=== PATIENT | female | born 2005 | race Caucasian/White ===

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

== ENCOUNTER 2024-02-14 10:17 | Emergency (ER) | payer OTHER ==
[2024-02-14 10:26] VITALS: BP 121/82; PULSE 83; RESP 20; TEMP 98
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
--- NOTE | 2024-02-14 11:25 | XR ---
EXAMINATION TYPE: XR knee complete RT DATE OF EXAM: 02/14/2024 COMPARISON: None HISTORY: Knee pain, fall yesterday TECHNIQUE: 3 view right knee FINDINGS: No acute fracture or dislocation is evident. Joint spaces are preserved. Small suprapatella r joint effusion is present. IMPRESSION: 1. Small joint effusion. 2. No acute osseous abnormality. Follow-up can be performed as clinically indicated. [facility], Workstation: [facility], 02/14/2024 11:23 AM
[2024-02-14] MEDS: ACET/COD 300 MG/30 MG STARTER PACK 6 TAB BTL PO STA (11:54)
== END 2024-02-14 12:01 | disposition home or self-care (01) ==
LOC: EC 10:17
CPT/HCPCS: 99283

== ENCOUNTER 2024-07-12 12:36 | Emergency (ER) | payer OTHER ==
[2024-07-12 13:47] LABS: Basophils % (A) 0 %; Eosinophils # (A) 0.1 k/uL (0-0.7); Eosinophils % (A) 1 %; HCT 42.4 % (34.0-46.0); HGB 13.4 gm/dL (11.4-16.0); Lymphocytes # (A) 1.7 k/uL (1.0-4.8); Lymphocytes % (A) 13 %; MCH 28.3 pg (25.0-35.0); MCHC 31.6 g/dL (31.0-37.0); MCV 89.5 fL (80.0-100.0); Monocytes # (A) 0.6 k/uL (0-1.0); Monocytes % (A) 5 %; Neutrophils % (A) 81 %; Platelet Count 305 k/uL (150-450); RBC 4.74 m/uL (3.80-5.40); RDW 13.1 % (11.5-15.5); WBC 13.7 k/uL (4.0-11.0)
[2024-07-12 13:59] LABS: ALT 18 U/L (4-34); AST 24 U/L (14-36); African American GFR (CKD) >90 (>60 ml/min/1.73 sqM); Albumin 4.6 g/dL (3.5-5.0); Alkaline Phosphatase 81 U/L (38-126); Anion Gap 12 mmol/L; Blood Urea Nitrogen 7 mg/dL (7-17); Calcium 9.7 mg/dL (8.4-10.2); Carbon Dioxide 23 mmol/L (22-30); Chloride 98 mmol/L (98-107); Glucose 82 mg/dL (74-99); Non-African American GFR(CKD) >90 (>60 ml/min/1.73 sqM); Potassium 3.9 mmol/L (3.5-5.1); Sodium 133 mmol/L (137-145); Total Bilirubin 0.8 mg/dL (0.2-1.3); Total Protein 7.9 g/dL (6.3-8.2)
[2024-07-12 14:44] LABS: HCG,Quantitative Serum 57755.8 mIU/mL
--- NOTE | 2024-07-12 14:46 | ED ---
General Adult HPI - General Source: patient, family, RN notes reviewed Mode of arrival: ambulatory Limitations: no limitations <Maritza Young - Last Filed: 07/12/24 16:17> - General Source: patient, RN notes reviewed Mode of arrival: ambulatory Limitations: no limitations - History of Present Illness Onset/Timin -: days(s) <Manny Jeronimo - Last Filed: 07/12/24 19:10> - General Chief complaint: Nausea/Vomiting/Diarrhea Stated complaint: , severe nausea Time Seen by Provider: 07/12/24 13:44 - History of Present Illness Initial comments: 18-year-old female presents emergency department for evaluation of nausea and v omiting in . She reports that she is 6 weeks, 6 days . Patient states that she has been vomiting daily for multiple days. She states that she has had difficulty holding down food and fluid. She denies any recent fever, chills, denies abdominal pain. She has not follows with FRAME GATE MORTISER OPERATOR for this yet. (Maritza Young) This is a A0 6-week 6-day 18-year-old female presenting with mother for vomiting x 3 days. Patient states she has been nauseous for the entirety of her with vomiting starting just recently. States she was recently approved for Medicaid and will set up her first OB appointment when she receives her card in the mail. States she is currently taking prenatals. Endorses receiving an ultrasound at [facility] but was too early to confirm intrauterine . States she has been taking carmen lozenges for nausea with minimal relief. Denies fever, chills, dizziness, dyspnea, abdominal pain, hematemesis, diarrhea. (Manny Jeronimo) - Related Data Home Medications Medication Instructions Recorded Confirmed buPROPion XL [Wellbutrin Xl] 150 mg PO DAILY 04/24/20 04/24/20 lamoTRIgine [LaMICtal] See Taper PO DIRECTED 04/24/20 04/24/20 Previous Rx's Medication Instructions Recorded Doxycycline Monohydrate [Monodox] 100 mg PO Q12HR #14 cap 08/19/21 Phenazopyridine HCl [Pyridium] 100 mg PO TID PRN #6 tab 08/19/21 Ibuprofen [Motrin] 600 mg PO Q8HR PRN #20 tab 02/14/24 Doxylamine Succinate/Vit B6 1 each PO HS #10 tab 07/12/24 [Doxylamine-Pyridoxine 10-10 mg] Allergies Allergy/AdvReac Type Severity Reaction Status Date / Time No Known Allergies Allergy Verified 02/14/24 10:25 Review of Systems ROS Other: All systems not noted in ROS Statement are negative. <Maritza Young - Last Filed: 07/12/24 16:17> ROS Other: All systems not noted in ROS Statement are negative. <Manny Jeronimo - Last Filed: 07/12/24 19:10> ROS Statement: Those systems with pertinent positive or pertinent negative responses have been documented in the HPI. Past Medical History Past Medical History: No Reported History History of Any Multi-Drug Resistant Organisms: None Reported Past Surgical History: Appendectomy Past Psychological History: Depression Smoking Status: Vaper Past Alcohol Use History: Rare Past Drug Use History: Marijuana - Past Family History Father Family Medical History: Cancer Additional Family Medical History / Comment(s): Father 5 years ago from lung cancer. Mother Family Medical History: Hypertension Additional Family Medical History / Comment(s): Maternal grandma has HTN <Maritza Young - Last Filed: 07/12/24 16:17> General Exam Limitations: no limitations General appearance: alert, in no apparent distress Head exam: Present: atraumatic, normocephalic, normal inspection Eye exam: Present: normal appearance, PERRL, EOMI. Absent: scleral icterus, conjunctival injection, periorbital swelling ENT exam: Present: normal exam, mucous membranes moist Respiratory exam: Present: normal lung sounds bilaterally. Absent: respiratory distress, wheezes, rales, rhonchi, stridor Cardiovascular Exam: Present: regular rate, normal rhythm, normal heart sounds. Absent: systolic murmur, diastolic murmur, rubs, gallop, clicks GI/Abdominal exam: Present: soft, normal bowel sounds. Absent: distended, tenderness, guarding, rebound, rigid Neurological exam: Present: alert, oriented X3 Psychiatric exam: Present: normal affect, normal mood Skin exam: Present: warm, dry, intact, normal color. Absent: rash <Maritza Young - Last Filed: 07/12/24 16:17> Limitations: no limitations General appearance: alert, in no apparent distress Head exam: Present: atraumatic, normocephalic, normal inspection Eye exam: Present: normal appearance, PERRL, EOMI. Absent: scleral icterus, conjunctival injection, periorbital swelling ENT exam: Present: normal exam, mucous membranes moist Neck exam: Present: normal inspection. Absent: tenderness, meningismus, lymphadenopathy Respiratory exam: Present: normal lung sounds bilaterally. Absent: respiratory distress, wheezes, rales, rhonchi, stridor Cardiovascular Exam: Present: regular rate, normal rhythm, normal heart sounds. Absent: systolic murmur, diastolic murmur, rubs, gallop, clicks GI/Abdominal exam: Present: soft, normal bowel sounds. Absent: distended, tenderness, guarding, rebound, rigid Extremities exam: Present: normal inspection, full ROM, normal capillary refill. Absent: tenderness, pedal edema, joint swelling, calf tenderness Back exam: Present: normal inspection Neurological exam: Present: alert, oriented X3, CN II-XII intact Psychiatric exam: Present: normal affect, normal mood Skin exam: Present: warm, dry, intact, normal color. Absent: rash <Manny Jeronimo - Last Filed: 07/12/24 19:10> Course Vital Signs 07/12/24 07/12/24 13:19 17:29 Temperature 98.5 F 98.9 F Pulse Rate 58 L 71 Respiratory 20 18 Rate Blood Pressure 118/77 122/70 O2 Sat by Pulse 99 100 Oximetry Medical Decision Making - Lab Data Result diagrams: 07/12/24 13:34 07/12/24 13:34 <Maritza Young - Last Filed: 07/12/24 16:17> - Lab Data Result diagrams: 07/12/24 13:34 07/12/24 13:34 <Manny Jeronimo - Last Filed: 07/12/24 19:10> - Medical Decision Making Was pt. sent in by a medical professional or institution (COLEEN Nuñez, WHITE METAL CASTER, urgent care, hospital, or longterm...) When possible be specific @ -[No] Did you speak to anyone other than the patient for history (EMS, parent, family, police, friend...)? What history was obtained from this source @ -[No] Did you review nursing and triage notes (agree or disagree)? Why? @ -[I reviewed and agree with nursing and triage notes] Were old charts reviewed (outside hosp., previous admission, EMS record, old EKG, old radiological studies, urgent care reports/EKG's, longterm records)? Report findings @ -[No old charts were reviewed] Differential Diagnosis (chest pain, altered mental status, abdominal pain women, abdominal pain men, vaginal bleeding, weakness, fever, dyspnea, syncope, headache, dizziness, GI bleed, back pain, seizure, CVA, palpatations, mental health, musculoskeletal)? @ -[Nausea and vomiting , hyperemesis gravidarum, ectopic , miscarriage, this list is not all inclusive] EKG interpreted by me (3pts min.). @ -[None] X-rays interpreted by me (1pt min.). @ -[None done] CT interpreted by me (1pt min.). @ -[None done] U/S interpreted by me (1pt. min.). @ -[None done] What testing was considered but not performed or refused? (CT, X-rays, U/S, labs)? Why? @ -[None] What meds were considered but not given or refused? Why? @ -[None] Did you discuss the management of the patient with other professionals (professionals i.e. , PA, WHITE METAL CASTER, lab, RT, psych nurse, social psychologist, process control technician, teacher, classifications officer cc/cm, continuous pillowcase cutter)? Give summary @ -[No] Was smoking cessation discussed for >3mins.? @ -[No] Was critical care preformed (if so, how long)? @ -[No] Were there social determinants of health that impacted care today? How? (Homelessness, low income, unemployed, alcoholism, drug addiction, transportation, low edu. Level, literacy, decrease access to med. care, [facility]ci, rehab)? @ -[No] Was there de-escalation of care discussed even if they declined (Discuss DNR or withdrawal of care, Hospice)? DNR status @ -[No] What co-morbidities impacted this encounter? (DM, HTN, Smoking, COPD, CAD, Cancer, CVA, ARF, Chemo, Hep., AIDS, mental health diagnosis, sleep apnea, morbid obesity)? @ -[None] Was patient admitted / discharged? Hospital course, mention meds given and route, prescriptions, significant lab abnormalities, going to OR and other pertinent info. @ -[Patient presented emergency department for evaluation of nausea and vomiting in . Patient reports being 6 weeks, 6 days . Laboratory studies obtained revealing mild leukocytosis at 13.7 which is likely reactive to vomiting; CMP shows mild hyponatremia at 133, otherwise unremarkable quantitative serum hCG 59123.8 patient was administered IV fluids, Reglan, Benadryl, vitamin B6 in the ED. Case signed out to Manny Jeronimo PA-C pending ultrasound. ] Undiagnosed new problem with uncertain prognosis? @ -[No] Drug Therapy requiring intensive monitoring for toxicity (Heparin, Nitro, Insulin, Cardizem)? @ -[No] Were any procedures done? @ -[No] Diagnosis/symptom? @ -[default] Acute, or Chronic, or Acute on Chronic? @ -[default] Uncomplicated (without systemic symptoms) or Complicated (systemic symptoms)? @ -[default] Side effects of treatment? @ -[No] Exacerbation, Progression, or Severe Exacerbation? @ -[No] Poses a threat to life or bodily function? How? (Chest pain, [place], [place], pneumonia, PE, COPD, DKA, ARF, appy, cholecystitis, CVA, Diverticulitis, Homicidal, Suicidal, threat to staff... and all critical care pts) @ -[No] (Maritza Young) Was pt. sent in by a medical professional or institution (COLEEN Nuñez, WHITE METAL CASTER, urgent care, hospital, or longterm...) When possible be specific @ -No Did you speak to anyone other than the patient for history (EMS, parent, family, police, friend...)? What history was obtained from this source @ -No Did you review nursing and triage notes (agree or disagree)? Why? @ -I reviewed and agree with nursing and triage notes Were old charts reviewed (outside hosp., previous admission, EMS record, old EKG, old radiological studies, urgent care reports/EKG's, longterm records)? Report findings @ -No old charts were reviewed Differential Diagnosis (chest pain, altered mental status, abdominal pain women, abdominal pain men, vaginal bleeding, weakness, fever, dyspnea, syncope, headache, dizziness, GI bleed, back pain, seizure, CVA, palpatations, mental health, musculoskeletal)? @ -Differential Abdominal Pain Women: Appendicitis, Cholecystitis, diverticulosis, ischemic bowel, pancreatitis, hepatitis, UTI, gastroenteritis, AAA, incarcerated hernia, bowel obstruction, constipation, inflammatory bowel, hepatitis, peptic ulcer disease, splenic infarction, perforated viscus, vulvitis, ovarian torsion, PID, kidney stone, placenta abruption, this is not meant to be an all-inclusive list EKG interpreted by me (3pts min.). @ -Not done X-rays interpreted by me (1pt min.). @ -None done CT interpreted by me (1pt min.). @ -None done U/S interpreted by me (1pt. min.). @ - ultrasound shows single live intrauterine with aged 6 weeks 6 days. What testing was considered but not performed or refused? (CT, X-rays, U/S, labs)? Why? @ -None What meds were considered but not given or refused? Why? @ -None Did you discuss the management of the patient with other professionals (professionals i.e. , PA, WHITE METAL CASTER, lab, RT, psych nurse, social psychologist, process control technician, teacher, classifications officer cc/cm, continuous pillowcase cutter)? Give summary @ -No Was smoking cessation discussed for >3mins.? @ -No Was critical care preformed (if so, how long)? @ -No Were there social determinants of health that impacted care today? How? (Homelessness, low income, unemployed, alcoholism, drug addiction, transportation, low edu. Level, literacy, decrease access to med. care, fci, rehab)? @ -No Was there de-escalation of care discussed even if they declined (Discuss DNR or withdrawal of care, Hospice)? DNR status @ -No What co-morbidities impacted this encounter? (DM, HTN, Smoking, COPD, CAD, Cancer, CVA, ARF, Chemo, Hep., AIDS, mental health diagnosis, sleep apnea, morbid obesity)? @ -None Was patient admitted / discharged? Hospital course, mention meds given and route, prescriptions, significant lab abnormalities, going to OR and other pertinent info. @ -Patient care conveyed to me from Maritza Young PA-C. Previous provider has already provided IV normal saline, Reglan, Benadryl and vitamin B6 with nausea improving for patient. Lab work shows mild leukocytosis 13.7. Quantitative hCG 57.7K and UA showing ketonuria. ultrasound shows single live intrauterine with aged 6 weeks 6 days. Unisom/vitamin B6 sent to patient's pharmacy. Advise carmen tea/oil for ongoing nausea and follow-up with FRAME GATE MORTISER OPERATOR for ongoing management of . Discussed patient with Dr. Celis. Undiagnosed new problem with uncertain prognosis? @ -No Drug Therapy requiring intensive monitoring for toxicity (Heparin, Nitro, Insulin, Cardizem)? @ -No Were any procedures done? @ -No Diagnosis/symptom? @ -Nausea/vomiting associated with Acute, or Chronic, or Acute on Chronic? @ -Acute Uncomplicated (without systemic symptoms) or Complicated (systemic symptoms)? @ -Uncomplicated Side effects of treatment? @ -No Exacerbation, Progression, or Severe Exacerbation? @ -No Poses a threat to life or bodily function? How? (Chest pain, [place], [place], pneumonia, PE, COPD, DKA, ARF, appy, cholecystitis, CVA, Diverticulitis, Homicidal, Suici ann, threat to staff... and all critical care pts) @ -No (Manny Jeronimo) - Lab Data Lab Results 07/12/24 07/12/24 07/12/24 Range/Units 13:34 13:34 15:41 WBC 13.7 H (4.0-11.0) k/uL RBC 4.74 (3.80-5.40) m/uL Hgb 13.4 (11.4-16.0) gm/dL Hct 42.4 (34.0-46.0) % MCV 89.5 (80.0-100.0) fL MCH 28.3 (25.0-35.0) pg MCHC 31.6 (31.0-37.0) g/dL RDW 13.1 (11.5-15.5) % Plt Count 305 (150-450) k/uL MPV 8.0 Neutrophils % 81 % Lymphocytes % 13 % Monocytes % 5 % Eosinophils % 1 % Basophils % 0 % Neutrophils # 11.0 H (1.3-7.7) k/uL Lymphocytes # 1.7 (1.0-4.8) k/uL Monocytes # 0.6 (0-1.0) k/uL Eosinophils # 0.1 (0-0.7) k/uL Basophils # 0.0 (0-0.2) k/uL Sodium 133 L (137-145) mmol/L Potassium 3.9 (3.5-5.1) mmol/L Chloride 98 (98-107) mmol/L Carbon Dioxide 23 (22-30) mmol/L Anion Gap 12 mmol/L BUN 7 (7-17) mg/dL Creatinine 0.48 L (0.52-1.04) mg/dL Est GFR (CKD-EPI)AfAm >90 (>60 ml/min/1.73 sqM) Est GFR (CKD-EPI)NonAf >90 (>60 ml/min/1.73 sqM) Glucose 82 (74-99) mg/dL Calcium 9.7 (8.4-10.2) mg/dL Total Bilirubin 0.8 (0.2-1.3) mg/dL AST 24 (14-36) U/L ALT 18 (4-34) U/L Alkaline Phosphatase 81 (38-126) U/L Total Protein 7.9 (6.3-8.2) g/dL Albumin 4.6 (3.5-5.0) g/dL HCG, Quant 00950.8 mIU/mL Urine Color Yellow Urine Appearance Cloudy H (Clear) Urine pH 6.0 (5.0-8.0) Ur Specific [place] 1.029 (1.001-1.035) Urine Protein 1+ H (Negative) Urine Glucose (UA) Negative (Negative) Urine Ketones 4+ H (Negative) Urine Blood Negative (Negative) Urine Nitrite Negative (Negative) Urine Bilirubin Negative (Negative) Urine Urobilinogen <2.0 (<2.0) mg/dL Ur Leukocyte Esterase Negative (Negative) Urine RBC 2 (0-5) /hpf Urine WBC 4 (0-5) /hpf Ur Squamous Epith Cells 9 H (0-4) /hpf Urine Mucus Many H (None) /hpf Disposition Is patient prescribed a controlled substance at d/c from ED?: No <Maritza Young - Last Filed: 07/12/24 16:17> Is patient prescribed a controlled substance at d/c from ED?: No Time of Disposition: 17:16 <Manny Jeronimo - Last Filed: 07/12/24 19:10> Clinical Impression: Nausea and vomiting in Disposition: HOME SELF-CARE Condition: Good Instructions (If sedation given, give patient instructions): Acute Nausea and Vomiting (ED) Additional Instructions: Follow up with your OB. Doxylamine/pyridoxine can be taken for nausea. You may take 2 tablets at bedtime. If symptoms persist, may increase dose by 1 tablet daily, with up to 4 tablets daily. (1 tab in am, 1 tab mid-day, 2 tabs at bedtime. If too expensive, may take Unisom with vitamin B6 for same effect. Return to the emergency department for new or worsening symptoms. Prescriptions: Doxylamine Succinate/Vit B6 [Doxylamine-Pyridoxine 10-10 mg] 1 each PO HS #10 tab Referrals: Rowena Davidson MD [Primary Care Provider] - 1-2 days Carey Poole MD [STAFF PHYSICIAN] - 1-2 days
[2024-07-12] MEDS: SODIUM CHLORIDE 0.9% 1,000 ML IV ONE ×2 (15:35→16:11)
[2024-07-12] MEDS: PYRIDOXINE 100 MG/ML 1 ML VIAL IVP STA (15:36)
[2024-07-12] MEDS: METOCLOPRAMIDE 5 MG/ML 2 ML VIAL IVP STA (15:37)
[2024-07-12] MEDS: diphenhydrAMINE 50 MG/ML 1 ML VIAL IVP STA (15:38)
[2024-07-12 15:56] LABS: Appearance,Urine Cloudy (Clear); Bilirubin,Urine Negative (Negative); Blood,Urine Negative (Negative); Color,Urine Yellow; Glucose,Urine (UA) Negative (Negative); Ketones,Urine 4+ (Negative); Leukocyte Esterase,Urine Negative (Negative); Mucus,Urine Many /hpf; Nitrite,Urine Negative (Negative); Protein,Urine 1+ (Negative); RBC,Urine 2 /hpf (0-5); Specific Gravity,Urine 1.029 (1.001-1.035); Squamous Epithelial Cell,Urine 9 /hpf (0-4); Urobilinogen,Urine <2.0 mg/dL (<2.0); WBC,Urine 4 /hpf (0-5)
--- NOTE | 2024-07-12 17:05 | US ---
EXAMINATION TYPE: Transabdominal DATE OF EXAM: 07/12/2024 4:44 PM COMPARISON: NONE CLINICAL INDICATION: Female, 18 years old with history of 7 wks ; nausea/vomiting. no pain, n o vaginal bleeding TECHNIQUE: Transabdominal (TA) with grayscale and color Doppler imaging including first trimester pre gnancy. FINDINGS: EXAM MEASUREMENTS: GESTATIONAL AGE / DATING Physician Established: Not yet established Dates by LMP: (7 weeks/4 days) EDC: 02/24/25 Dates by First Scan: No previous this is first scan Dates by Current Scan for: (6 weeks/6 days) EDC: 03/01/25 MATERNAL ANATOMY Uterus: 9.7 x 3.6 x 6.9cm Right Ovary: 2.9 x 1.5 x 1.6cm Left Ovary: 3.6 x 2.3 x 2.1cm Post CDS / Adnexa: wnl Presence of free fluid: no Presence of corpus luteal cyst: yes, hypoechoic lesion left ovary = 2.8 x 2.0 x 2.0cm GESTATION / SURVEY CRL: 0.8cm (6 weeks/6 days) Gestational Sac morphology: Normal Yolk Sac (normal less than 6mm): 0.3cm Cardiac Activity/Heart Rate: 119 bpm Rhythm: Normal IUP: Viable IUP Date of LMP: 05/20/24 Beta HcG (if available): IMPRESSION: Single live intrauterine with calculated ultrasound age of 6 weeks 6 days and estimated due date of 03/01/2025. [facility], , 07/12/2024 5:02 PM
[2024-07-12 17:31] VITALS: BP 122/70; PULSE 71; RESP 18; TEMP 98.9
== END 2024-07-12 17:31 | disposition home or self-care (01) ==
LOC: EC 12:36
DX: O21.9 Vomiting of pregnancy, unspecified (principal); O99.111 Other diseases of the blood and blood-forming organs and certain disorders involving the immune mechanism complicating pregnancy, first trimester; D72.829 Elevated white blood cell count, unspecified; O99.331 Smoking (tobacco) complicating pregnancy, first trimester; F17.290 Nicotine dependence, other tobacco product, uncomplicated; Z3A.01 Less than 8 weeks gestation of pregnancy
CPT/HCPCS: 99284; 96374; 96375 ×2; 96361 ×2; 36415; 80053; 85025; 81001; 84702; 76801; J1200; J3415; J2765

== ENCOUNTER 2024-07-24 15:28 | Emergency (ER) | payer OTHER ==
[2024-07-24 16:22] LABS: Appearance,Urine Cloudy (Clear); Bilirubin,Urine Negative (Negative); Blood,Urine Negative (Negative); Color,Urine Yellow; Glucose,Urine (UA) Negative (Negative); Ketones,Urine 1+ (Negative); Leukocyte Esterase,Urine Small (Negative); Mucus,Urine Few /hpf; Nitrite,Urine Negative (Negative); PH, Urine 6.5 (5.0-8.0); Protein,Urine Trace (Negative); RBC,Urine 2 /hpf (0-5); Specific Gravity,Urine 1.017 (1.001-1.035); Squamous Epithelial Cell,Urine 3 /hpf (0-4); WBC,Urine 15 /hpf (0-5)
--- NOTE | 2024-07-24 16:24 | ED ---
Female Urogenital HPI - General Chief complaint: Urogenital Stated complaint: NVD 8 Weeks Time Seen by Provider: 07/24/24 16:22 Source: patient, family, RN notes reviewed Mode of arrival: ambulatory Limitations: no limitations - History of Present Illness Initial comments: 18-year-old female with no significant medical history, [id number], presenting to the emergency department for chief complaint of dysuria and increase in urinary frequency and urgency over the past approximately 5 days. States that her symptoms have persisted and worsened in addition to experiencing suprapubic tenderness. States that over the past few days she has been experiencing yellow-colored vaginal discharge that is not odorous. Denies vaginal bleeding. Denies Z[place] for STI or STD. Patient is approximately 8 weeks and had a ultrasound confirming an intrauterine in the beginning of this month. Last Menstrual Period: 05/20/24 - Related Data Home Medications Medication Instructions Recorded Confirmed buPROPion XL [Wellbutrin Xl] 150 mg PO DAILY 04/24/20 04/24/20 lamoTRIgine [LaMICtal] See Taper PO DIRECTED 04/24/20 04/24/20 Previous Rx's Medication Instructions Recorded Doxycycline Monohydrate [Monodox] 100 mg PO Q12HR #14 cap 08/19/21 Phenazopyridine HCl [Pyridium] 100 mg PO TID PRN #6 tab 08/19/21 Ibuprofen [Motrin] 600 mg PO Q8HR PRN #20 tab 02/14/24 Doxylamine Succinate/Vit B6 1 each PO HS #10 tab 07/12/24 [Doxylamine-Pyridoxine 10-10 mg] Nitrofurantoin Monohyd/M-Cryst 100 mg PO Q12HR #14 cap 07/24/24 [Macrobid] Allergies Allergy/AdvReac Type Severity Reaction Status Date / Time No Known Allergies Allergy Verified 02/14/24 10:25 Review of Systems ROS Statement: Those systems with pertinent positive or pertinent negative responses have been documented in the HPI. ROS Other: All systems not noted in ROS Statement are negative. Past Medical History Past Medical History: No Reported History History of Any Multi-Drug Resistant Organisms: None Reported Past Surgical History: Appendectomy Past Psychological History: Depression Smoking Status: Vaper Past Alcohol Use History: Rare Past Drug Use History: Marijuana - Past Family History Father Family Medical History: Cancer Additional Family Medical History / Comment(s): Father 5 years ago from lung cancer. Mother Family Medical History: Hypertension Additional Family Medical History / Comment(s): Maternal grandma has HTN General Exam Limitations: no limitations General appearance: alert, in no apparent distress Respiratory exam: Present: normal lung sounds bilaterally. Absent: respiratory distress, wheezes, rales, rhonchi, stridor Cardiovascular Exam: Present: regular rate, normal rhythm, normal heart sounds. Absent: systolic murmur, diastolic murmur, rubs, gallop, clicks GI/Abdominal exam: Present: soft, tenderness (suprapubic), normal bowel sounds. Absent: distended, guarding, rebound, rigid Speculum exam: Present: vaginal discharge. Absent: erythema, vaginal bleeding, foreign body By manual exam: Absent: cervical motion tenderness, adnexal tenderness Extremities exam: Present: normal inspection, full ROM, normal capillary refill. Absent: tenderness, pedal edema, joint swelling, calf tenderness Back exam: Present: normal inspection. Absent: CVA tenderness (R), CVA tenderness (L) Course Vital Signs 07/24/24 15:49 Temperature 98.2 F Pulse Rate 91 Respiratory 20 Rate Blood Pressure 108/71 O2 Sat by Pulse 99 Oximetry Medical Decision Making - Medical Decision Making Was pt. sent in by a medical professional or institution (COLEEN Nuñez, CARDIOLOGY PHYSICIAN ASSISTANT, urgent care, hospital, or prison...) When possible be specific @ -No Did you speak to anyone other than the patient for history (EMS, parent, family, police, friend...)? What history was obtained from this source @ -No Did you review nursing and triage notes (agree or disagree)? Why? @ -I reviewed and agree with nursing and triage notes Were old charts reviewed (outside hosp., previous admission, EMS record, old EKG, old radiological studies, urgent care reports/EKG's, prison records)? Report findings @ -Reviewed ultrasound that was completed on 07/12/2024 revealing a single live intrauterine gestation with a ultrasound age of 6 weeks, 6 days and heart rate of 119 Differential Diagnosis (chest pain, altered mental status, abdominal pain women, abdominal pain men, vaginal bleeding, weakness, fever, dyspnea, syncope, headache, dizziness, GI bleed, back pain, seizure, CVA, palpatations, mental health, musculoskeletal)? @ -Differential Abdominal Pain Women: Appendicitis, Cholecystitis, diverticulosis, ischemic bowel, pancreatitis, hepatitis, UTI, gastroenteritis, AAA, incarcerated hernia, bowel obstruction, constipation, inflammatory bowel, hepatitis, peptic ulcer disease, splenic infarction, perforated viscus, vulvitis, ovarian torsion, PID, kidney stone, placenta abruption, this is not meant to be an all-inclusive list EKG interpreted by me (3pts min.). @ -none X-rays interpreted by me (1pt min.). @ -None done CT interpreted by me (1pt min.). @ -None done U/S interpreted by me (1pt. min.). @ -Limited OB ultrasound completed with a heart rate of 182 with a single viable intrauterine What testing was considered but not performed or refused? (CT, X-rays, U/S, labs)? Why? @ -None What meds were considered but not given or refused? Why? @ -None Did you discuss the management of the patient with other professionals (professionals i.e. , PA, CARDIOLOGY PHYSICIAN ASSISTANT, lab, RT, psych nurse, social media intern, cutter grinder operator, teacher, casino surveillance officer, pillowcase sewer)? Give summary @ -No Was smoking cessation discussed for >3mins.? @ -No Was critical care preformed (if so, how long)? @ -No Were there social determinants of health that impacted care today? How? (Homelessness, low income, unemployed, alcoholism, drug addiction, transportation, low edu. Level, literacy, decrease access to med. care, alf, rehab)? @ -No Was there de-escalation of care discussed even if they declined (Discuss DNR or withdrawal of care, Hospice)? DNR status @ -No What co-morbidities impacted this encounter? (DM, HTN, Smoking, COPD, CAD, Cancer, CVA, ARF, Chemo, Hep., AIDS, mental health diagnosis, sleep apnea, morbid obesity)? @ -None Was patient admitted / discharged? Hospital course, mention meds given and route, prescriptions, significant lab abnormalities, going to OR and other pertinent info. @ - discharged. 18-year-old female presenting with urinary complaints. Urinalysis remarkable for small leukocyte esterase, 15 white blood cells and few mucus. Patient will be treated with antibiotics urinary tract infection. Ultrasound reveals a heart rate of 182. Patient's provided with additional dose of Macrobid provided with outpatient prescription. Pelvic examination completed with evidence of vaginal discharge, no cervical motion tenderness. Case discussed with Dr. Hood Undiagnosed new problem with uncertain prognosis? @ -No Drug Therapy requiring intensive monitoring for toxicity (Heparin, Nitro, Insulin, Cardizem)? @ -No Were any procedures done? @ -No Diagnosis/symptom? @ -UTI during Acute, or Chronic, or Acute on Chronic? @ -acute Uncomplicated (without systemic symptoms) or Complicated (systemic symptoms)? @ -uncomplicated Side effects of treatment? @ -No Exacerbation, Progression, or Severe Exacerbation? @ -No Poses a threat to life or bodily function? How? (Chest pain, [place], [place], pneumonia, PE, COPD, DKA, ARF, appy, cholecystitis, CVA, Diverticulitis, Homicidal, Suicidal, threat to staff... and all critical care pts) @ -No - Lab Data Lab Results 07/24/24 Range/Units 15:52 Urine Color Yellow Urine Appearance Cloudy H (Clear) Urine pH 6.5 (5.0-8.0) Ur Specific [place] 1.017 (1.001-1.035) Urine Protein Trace H (Negative) Urine Glucose (UA) Negative (Negative) Urine Ketones 1+ H (Negative) Urine Blood Negative (Negative) Urine Nitrite Negative (Negative) Urine Bilirubin Negative (Negative) Urine Urobilinogen 2.0 (<2.0) mg/dL Ur Leukocyte Esterase Small H (Negative) Urine RBC 2 (0-5) /hpf Urine WBC 15 H (0-5) /hpf Ur Squamous Epith Cells 3 (0-4) /hpf Urine Mucus Few H (None) /hpf Disposition Clinical Impression: Urinary tract infection during Disposition: HOME SELF-CARE Condition: Good Instructions (If sedation given, give patient instructions): Urinary Tract Infection in Women (ED) Additional Instructions: Please return to the Emergency Department if symptoms worsen or any other concerns. Prescriptions: Nitrofurantoin Monohyd/M-Cryst [Macrobid] 100 mg PO Q12HR #14 cap Is patient prescribed a controlled substance at d/c from ED?: No Referrals: Rowena Davidson MD [Primary Care Provider] - 1-2 days Time of Disposition: 17:41
--- NOTE | 2024-07-24 17:20 | US ---
EXAMINATION TYPE: US OB limited DATE OF EXAM: 07/24/2024 COMPARISON: 07/12/2024 CLINICAL INDICATION: Female, 18 years old with history of IUP @8 weeks, lower ab cramping; TECHNIQUE:: Transabdominal (TA) FINDINGS: GESTATIONAL AGE / DATING By LMP: (9 weeks/2 days) EDC: 02/24/2025 No growth performed on today?s study per ordering physician SURVEY HEART RATE: 182 bpm, Upper limits of normal vs slight tachycardia RHYTHM: Normal IMPRESSION: Single viable intrauterine . [facility], , 07/24/2024 5:18 PM
[2024-07-24] MEDS: NITROFURANTOIN MONOHYD/M-CRYST 100 MG CAP PO STA (18:09)
[2024-07-24 18:12] VITALS: BP 107/80; PULSE 80; RESP 18; TEMP 98.1
== END 2024-07-24 18:17 | disposition home or self-care (01) ==
LOC: EC 15:28
DX: O21.9 Vomiting of pregnancy, unspecified (principal); O23.91 Unspecified genitourinary tract infection in pregnancy, first trimester; O99.331 Smoking (tobacco) complicating pregnancy, first trimester; F17.290 Nicotine dependence, other tobacco product, uncomplicated; Z3A.08 8 weeks gestation of pregnancy
CPT/HCPCS: 76815; 81001; 87086; 99284

== ENCOUNTER 2024-08-09 15:52 | Emergency (ER) | payer OTHER ==
--- NOTE | 2024-08-09 17:09 | US ---
EXAMINATION TYPE: US OB limited DATE OF EXAM: 08/09/2024 COMPARISON: NONE CLINICAL INDICATION: Female, 18 years old with history of 11 weeks, spotting, abd cramping; spotting today, no cramping today, G1 TECHNIQUE:: OBTA/OBTV FINDINGS: GESTATIONAL AGE / DATING Physician Established: (11 weeks/5 days) EDC: 02/23/2025 Dates by Current Scan: (8 weeks/6 days) EDC: N/A HEART RATE: 0 bpm demise IMPRESSION: Intrauterine gestation without heart tones findings are compatible with demise. [facility], , 08/09/2024 5:07 PM
--- NOTE | 2024-08-09 17:15 | ED ---
Female Urogenital HPI - General Chief complaint: Vaginal Bleeding Stated complaint: Vaginal Bleeding (11 Weeks Preg) Time Seen by Provider: 08/09/24 17:15 Source: patient, RN notes reviewed Mode of arrival: ambulatory Limitations: no limitations - History of Present Illness Initial comments: 18-year-old approximately 11 weeks gestation female presented to the ER for evaluation of vaginal spotting. Patient states her last menstrual cycle was 05 20 24. Patient states this afternoon she started to have lower abdominal cramping and noticed light brown spotting. She states this continued into the afternoon which prompted emergency department visit. Patient states she has been unable to follow-up with an REHABILITATION SPECIALIST at this time as they do not take her insurance. She does admit continued mild lower abdominal cramping. She denies any dysuria, hematuria, constipation/diarrhea, nausea, vomiting, chest pain, shortness of breath or fevers. No other complaints at this time. - Related Data Home Medications Medication Instructions Recorded Confirmed buPROPion XL [Wellbutrin Xl] 150 mg PO DAILY 04/24/20 04/24/20 lamoTRIgine [LaMICtal] See Taper PO DIRECTED 04/24/20 04/24/20 Previous Rx's Medication Instructions Recorded Doxycycline Monohydrate [Monodox] 100 mg PO Q12HR #14 cap 08/19/21 Phenazopyridine HCl [Pyridium] 100 mg PO TID PRN #6 tab 08/19/21 Ibuprofen [Motrin] 600 mg PO Q8HR PRN #20 tab 02/14/24 Doxylamine Succinate/Vit B6 1 each PO HS #10 tab 07/12/24 [Doxylamine-Pyridoxine 10-10 mg] Nitrofurantoin Monohyd/M-Cryst 100 mg PO Q12HR #14 cap 07/24/24 [Macrobid] HYDROcodone/APAP 7.5-325MG [[place] 1 tab PO Q6HR PRN 3 Days #12 tab 08/13/24 7.5-325] Allergies Allergy/AdvReac Type Severity Reaction Status Date / Time No Known Allergies Allergy Verified 08/13/24 14:51 Review of Systems ROS Statement: Those systems with pertinent positive or pertinent negative responses have been documented in the HPI. ROS Other: All systems not noted in ROS Statement are negative. Past Medical History Past Medical History: No Reported History History of Any Multi-Drug Resistant Organisms: None Reported Past Surgical History: Appendectomy Past Psychological History: Depression Smoking Status: Vaper Past Alcohol Use History: Rare Past Drug Use History: Marijuana - Past Family History Father Family Medical History: Cancer Additional Family Medical History / Comment(s): Father 5 years ago from lung cancer. Mother Family Medical History: Hypertension Additional Family Medical History / Comment(s): Maternal grandma has HTN General Exam Limitations: no limitations General appearance: alert, in no apparent distress Respiratory exam: Present: normal lung sounds bilaterally. Absent: respiratory distress, wheezes, rales, rhonchi, stridor Cardiovascular Exam: Present: regular rate, normal rhythm, normal heart sounds. Absent: systolic murmur, diastolic murmur, rubs, gallop, clicks GI/Abdominal exam: Present: soft, tenderness (mild suprapubic), normal bowel sounds External exam: Present: normal external exam Speculum exam: Present: vaginal bleeding (scant bleeding. cervical os closed) Neurological exam: Present: alert, oriented X3, CN II-XII intact Skin exam: Present: warm, dry, intact, normal color. Absent: rash Course Vital Signs 08/09/24 08/09/24 16:25 18:39 Temperature 98.5 F 98.2 F Pulse Rate 75 71 Respiratory 20 18 Rate Blood Pressure 113/72 115/86 O2 Sat by Pulse 100 100 Oximetry - Reevaluation(s) Reevaluation #1: 08/09/24 18:29 Case discussed with on-call REHABILITATION SPECIALIST, . She advised on outpatient fo llow-up to determine surgical versus medical treatment of missed . Medical Decision Making - Medical Decision Making Was pt. sent in by a medical professional or institution (, PA, PHLEBOTOMIST PRN, urgent care, hospital, or senior living...) When possible be specific @ -No Did you speak to anyone other than the patient for history (EMS, parent, family, police, friend...)? What history was obtained from this source @ -No Did you review nursing and triage notes (agree or disagree)? Why? @ -I reviewed and agree with nursing and triage notes Were old charts reviewed (outside hosp., previous admission, EMS record, old EKG, old radiological studies, urgent care reports/EKG's, senior living records)? Report findings @ -Ultrasound completed on showing a single IUP with heart tones present. hCG at that time 57,755. Differential Diagnosis (chest pain, altered mental status, abdominal pain women, abdominal pain men, vaginal bleeding, weakness, fever, dyspnea, syncope, headache, dizziness, GI bleed, back pain, seizure, CVA, palpatations, mental health, musculoskeletal)? @ -Differential Vaginal Bleeding:Spontaneous , threatened , molar , ectopic , bloody show, incompetent cervix, abruptioplacenta, placenta previa, uterine rupture, dysfunctional uterine bleeding, hemorrhage, uterine fibroids, this is not meant to be an all-inclusive list. EKG interpreted by me (3pts min.). @ -None done X-rays interpreted by me (1pt min.). @ -None done CT interpreted by me (1pt min.). @ -None done U/S interpreted by me (1pt. min.). @ -OB limited ultrasound showing an IUP gestation without heart tones findings compatible with demise.] What testing was considered but not performed or refused? (CT, X-rays, U/S, labs)? Why? @ -None What meds were considered but not given or refused? Why? @ -Rhogam considered but not indicated as patient is blood type O+ Did you discuss the management of the patient with other professionals (professionals i.e. , PA, PHLEBOTOMIST PRN, lab, RT, psych nurse, case management social worker, senior landscape architect, teacher, child support officer, immigration case manager)? Give summary @ -Case was discussed with on-call REHABILITATION SPECIALIST, Dr. Poole. She advised on outpatient follow-up in office to determine surgical versus medicine management of missed . Was smoking cessation discussed for >3mins.? @ -No Was critical care preformed (if so, how long)? @ -No Were there social determinants of health that impacted care today? How? (Homelessness, low income, unemployed, alcoholism, drug addiction, transportation, low edu. Level, literacy, decrease access to med. care, group home, rehab)? @ -No Was there de-escalation of care discussed even if they declined (Discuss DNR or withdrawal of care, Hospice)? DNR status @ -No What co-morbidities impacted this encounter? (DM, HTN, Smoking, COPD, CAD, Cancer, CVA, ARF, Chemo, Hep., AIDS, mental health diagnosis, sleep apnea, morbid obesity)? @ -None Was patient admitted / discharged? Hospital course, mention meds given and route, prescriptions, significant lab abnormalities, going to OR and other pertinent info. @ -Discharge. 18-year-old female G1, P0 approximately 11 weeks gestation presented to the ER for evaluation of vaginal bleeding. Vitals within acceptable limits. Patient in no signs of acute distress nontoxic-appearing. Laboratory studies showing a stable hemoglobin of 13.2. hCG 11,259 this has significantly decreased from at 57,755. Ultrasound performed today showing an IUP with no heart tones present concerning of demise as on prior ultrasound completed on 07-12-24 showing an IUP with heart tones present. Patient is blood type O+, RhoGAM is not indicated. Laboratory studies and ultrasound findings discussed at length with REHABILITATION SPECIALIST, Dr. Poole. She advised on outpatient follow-up in office for determination of surgical versus medical management of missed . Upon reevaluation, patient resting comfortably in exam room no signs of acute distress. All results discussed with patient, all questions answered. REHABILITATION SPECIALIST referral given. Strict return parameters discussed. Patient discharged in stable condition. Patient verbally expressed understanding agreement with care plan. Case discussed with ED attending, Dr. Garza. Undiagnosed new problem with uncertain prognosis? @ -No Drug Therapy requiring intensive monitoring for toxicity (Heparin, Nitro, Insulin, Cardizem)? @ -No Were any procedures done? @ -No Diagnosis/symptom? @ -Missed Acute, or Chronic, or Acute on Chronic? @ -Acute Uncomplicated (without systemic symptoms) or Complicated (systemic symptoms)? @ -Uncomplicated Side effects of treatment? @ -No Exacerbation, Progression, or Severe Exacerbation? @ -No Poses a threat to life or bodily function? How? (Chest pain, [place], [place], pneumonia, PE, COPD, DKA, ARF, appy, cholecystitis, CVA, Diverticulitis, Homicidal, Suicidal, threat to staff... and all critical care pts) @ -Low at this time - Lab Data Result diagrams: 08/09/24 17:22 08/09/24 17:22 Lab Results 08/09/24 08/09/24 08/09/24 Range/Units 17:22 17:22 17:22 WBC (4.0-11.0) k/uL RBC (3.80-5.40) m/uL Hgb (11.4-16.0) gm/dL Hct (34.0-46.0) % MCV (80.0-100.0) fL MCH (25.0-35.0) pg MCHC (31.0-37.0) g/dL RDW (11.5-15.5) % Plt Count (150-450) k/uL MPV Neutrophils % % Lymphocytes % % Monocytes % % Eosinophils % % Basophils % % Neutrophils # (1.3-7.7) k/uL Lymphocytes # (1.0-4.8) k/uL Monocytes # (0-1.0) k/uL Eosinophils # (0-0.7) k/uL Basophils # (0-0.2) k/uL Sodium 136 L (137-145) mmol/L Potassium 3.6 (3.5-5.1) mmol/L Chloride 101 (98-107) mmol/L Carbon Dioxide 25 (22-30) mmol/L Anion Gap 10 mmol/L BUN 9 (7-17) mg/dL Creatinine 0.49 L (0.52-1.04) mg/dL Est GFR (CKD-EPI)AfAm >90 (>60 ml/min/1.73 sqM) Est GFR (CKD-EPI)NonAf >90 (>60 ml/min/1.73 sqM) Glucose 94 (74-99) mg/dL Calcium 9.5 (8.4-10.2) mg/dL Total Bilirubin 0.3 (0.2-1.3) mg/dL AST 23 (14-36) U/L ALT 14 (4-34) U/L Alkaline Phosphatase 61 (38-126) U/L Total Protein 7.4 (6.3-8.2) g/dL Albumin 4.4 (3.5-5.0) g/dL HCG, Quant 13308.1 mIU/mL Urine Color Colorless Urine Appearance Clear (Clear) Urine pH 6.0 (5.0-8.0) Ur Specific [place] 1.003 (1.001-1.035) Urine Protein Negative (Negative) Urine Glucose (UA) Negative (Negative) Urine Ketones Negative (Negative) Urine Blood Trace H (Negative) Urine Nitrite Negative (Negative) Urine Bilirubin Negative (Negative) Urine Urobilinogen <2.0 (<2.0) mg/dL Ur Leukocyte Esterase Negative (Negative) Urine RBC 1 (0-5) /hpf Urine WBC 1 (0-5) /hpf Ur Squamous Epith Cells 3 (0-4) /hpf Urine Bacteria Occasional H (None) /hpf Blood Type O Positive Blood Type Recheck No Previous Record Bld Type Recheck Status [facility] ONLY 08/09/24 Range/Units 17:22 WBC 11.3 H (4.0-11.0) k/uL RBC 4.74 (3.80-5.40) m/uL Hgb 13.2 (11.4-16.0) gm/dL Hct 41.9 (34.0-46.0) % MCV 88.4 (80.0-100.0) fL MCH 27.9 (25.0-35.0) pg MCHC 31.6 (31.0-37.0) g/dL RDW 13.7 (11.5-15.5) % Plt Count 268 (150-450) k/uL MPV 7.9 Neutrophils % 73 % Lymphocytes % 20 % Monocytes % 4 % Eosinophils % 2 % Basophils % 0 % Neutrophils # 8.2 H (1.3-7.7) k/uL Lymphocytes # 2.2 (1.0-4.8) k/uL Monocytes # 0.5 (0-1.0) k/uL Eosinophils # 0.2 (0-0.7) k/uL Basophils # 0.0 (0-0.2) k/uL Sodium (137-145) mmol/L Potassium (3.5-5.1) mmol/L Chloride (98-107) mmol/L Carbon Dioxide (22-30) mmol/L Anion Gap mmol/L BUN (7-17) mg/dL Creatinine (0.52-1.04) mg/dL Est GFR (CKD-EPI)AfAm (>60 ml/min/1.73 sqM) Est GFR (CKD-EPI)NonAf (>60 ml/min/1.73 sqM) Glucose (74-99) mg/dL Calcium (8.4-10.2) mg/dL Total Bilirubin (0.2-1.3) mg/dL AST (14-36) U/L ALT (4-34) U/L Alkaline Phosphatase (38-126) U/L Total Protein (6.3-8.2) g/dL Albumin (3.5-5.0) g/dL HCG, Quant mIU/mL Urine Color Urine Appearance (Clear) Urine pH (5.0-8.0) Ur Specific [place] (1.001-1.035) Urine Protein (Negative) Urine Glucose (UA) (Negative) Urine Ketones (Negative) Urine Blood (Negative) Urine Nitrite (Negative) Urine Bilirubin (Negative) Urine Urobilinogen (<2.0) mg/dL Ur Leukocyte Esterase (Negative) Urine RBC (0-5) /hpf Urine WBC (0-5) /hpf Ur Squamous Epith Cells (0-4) /hpf Urine Bacteria (None) /hpf Blood Type Blood Type Recheck Bld Type Recheck Status - Radiology Data Radiology results: report reviewed, image reviewed Disposition Clinical Impression: Missed Disposition: HOME SELF-CARE Condition: Stable Additional Instructions: Follow-up with REHABILITATION SPECIALIST in office in the next 1-2 days. Return to the ER for any new or worsening symptoms. Is patient prescribed a controlled substance at d/c from ED?: No Referrals: Rowena Davidson MD [Primary Care Provider] - 1-2 days Carey Poole MD [STAFF PHYSICIAN] - 1-2 days Time of Disposition: 18:28
[2024-08-09 17:32] LABS: Basophils % (A) 0 %; Eosinophils # (A) 0.2 k/uL (0-0.7); Eosinophils % (A) 2 %; HCT 41.9 % (34.0-46.0); HGB 13.2 gm/dL (11.4-16.0); Lymphocytes # (A) 2.2 k/uL (1.0-4.8); Lymphocytes % (A) 20 %; MCH 27.9 pg (25.0-35.0); MCHC 31.6 g/dL (31.0-37.0); MCV 88.4 fL (80.0-100.0); Mean Platelet Volume 7.9; Monocytes # (A) 0.5 k/uL (0-1.0); Monocytes % (A) 4 %; Neutrophils # (A) 8.2 k/uL (1.3-7.7); Neutrophils % (A) 73 %; Platelet Count 268 k/uL (150-450); RBC 4.74 m/uL (3.80-5.40); RDW 13.7 % (11.5-15.5); WBC 11.3 k/uL (4.0-11.0)
[2024-08-09 17:39] LABS: ALT 14 U/L (4-34); AST 23 U/L (14-36); African American GFR (CKD) >90 (>60 ml/min/1.73 sqM); Albumin 4.4 g/dL (3.5-5.0); Alkaline Phosphatase 61 U/L (38-126); Anion Gap 10 mmol/L; Blood Urea Nitrogen 9 mg/dL (7-17); Calcium 9.5 mg/dL (8.4-10.2); Carbon Dioxide 25 mmol/L (22-30); Chloride 101 mmol/L (98-107); Glucose 94 mg/dL (74-99); Non-African American GFR(CKD) >90 (>60 ml/min/1.73 sqM); Potassium 3.6 mmol/L (3.5-5.1); Sodium 136 mmol/L (137-145); Total Bilirubin 0.3 mg/dL (0.2-1.3); Total Protein 7.4 g/dL (6.3-8.2)
[2024-08-09 17:45] LABS: Appearance,Urine Clear (Clear); Bacteria,Urine Occasional /hpf; Bilirubin,Urine Negative (Negative); Blood,Urine Trace (Negative); Color,Urine Colorless; Glucose,Urine (UA) Negative (Negative); Ketones,Urine Negative (Negative); Leukocyte Esterase,Urine Negative (Negative); Nitrite,Urine Negative (Negative); Protein,Urine Negative (Negative); RBC,Urine 1 /hpf (0-5); Specific Gravity,Urine 1.003 (1.001-1.035); Squamous Epithelial Cell,Urine 3 /hpf (0-4); Urobilinogen,Urine <2.0 mg/dL (<2.0); WBC,Urine 1 /hpf (0-5)
[2024-08-09 17:56] LABS: HCG,Quantitative Serum 11259.1 mIU/mL
[2024-08-09 18:40] VITALS: BP 115/86; PULSE 71; RESP 18; TEMP 98.2
== END 2024-08-09 18:41 | disposition home or self-care (01) ==
LOC: EC 15:52
DX: O02.1 Missed abortion (principal); F17.290 Nicotine dependence, other tobacco product, uncomplicated
CPT/HCPCS: 36415; 76815; 80053; 81001; 84702; 85025; 86900; 86901; 99284

== ENCOUNTER 2024-08-13 14:46 | Emergency (ER) | payer OTHER ==
[2024-08-13 14:51] VITALS: TEMP 98.2
[2024-08-13] MEDS: HYDROmorphone 0.5 MG/0.5 ML SYRINGE IVP STA ×2 (15:20→16:54)
[2024-08-13] MEDS: ONDANSETRON 4 MG/2 ML VIAL IVP STA (15:21)
[2024-08-13 15:24] LABS: Basophils # (A) 0.1 k/uL (0-0.2); Basophils % (A) 0 %; Eosinophils # (A) 0.3 k/uL (0-0.7); Eosinophils % (A) 2 %; HCT 40.5 % (34.0-46.0); HGB 12.9 gm/dL (11.4-16.0); Lymphocytes # (A) 3.6 k/uL (1.0-4.8); Lymphocytes % (A) 26 %; MCH 28.3 pg (25.0-35.0); MCHC 31.8 g/dL (31.0-37.0); MCV 89.2 fL (80.0-100.0); Mean Platelet Volume 7.7; Monocytes # (A) 0.5 k/uL (0-1.0); Monocytes % (A) 4 %; Neutrophils # (A) 9.2 k/uL (1.3-7.7); Neutrophils % (A) 66 %; Platelet Count 307 k/uL (150-450); RBC 4.54 m/uL (3.80-5.40); RDW 13.7 % (11.5-15.5); WBC 13.9 k/uL (4.0-11.0)
[2024-08-13 15:41] LABS: ALT 15 U/L (4-34); AST 24 U/L (14-36); African American GFR (CKD) >90 (>60 ml/min/1.73 sqM); Alkaline Phosphatase 64 U/L (38-126); Anion Gap 10 mmol/L; Blood Urea Nitrogen 11 mg/dL (7-17); Calcium 9.2 mg/dL (8.4-10.2); Carbon Dioxide 24 mmol/L (22-30); Chloride 102 mmol/L (98-107); Glucose 95 mg/dL (74-99); Non-African American GFR(CKD) >90 (>60 ml/min/1.73 sqM); Potassium 3.7 mmol/L (3.5-5.1); Sodium 136 mmol/L (137-145); Total Bilirubin 0.3 mg/dL (0.2-1.3)
--- NOTE | 2024-08-13 15:48 | ED ---
Abdominal Pain HPI - General Chief Complaint: Abdominal Pain Stated Complaint: abd cramps Time Seen by Provider: 08/13/24 15:06 Source: patient, RN notes reviewed Mode of arrival: ambulatory Limitations: no limitations - History of Present Illness Initial Comments: 18-year-old female presents emergency department complaint of abdominal pain. Patient states that she diagnosed with a demise, missed 4 days ago. 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 Patient has A1 no positive blood type. Patient states that she had increasing abdominal discomfort, cramping which she describes as worse menstrual cycle type pain that she has had. Patient states bleeding did increase passing small clots states that she is only using 1 pads an hour. - Related Data Home Medications Medication Instructions Recorded Confirmed buPROPion XL [Wellbutrin Xl] 150 mg PO DAILY 04/24/20 04/24/20 lamoTRIgine [LaMICtal] See Taper PO DIRECTED 04/24/20 04/24/20 Previous Rx's Medication Instructions Recorded Doxycycline Monohydrate [Monodox] 100 mg PO Q12HR #14 cap 08/19/21 Phenazopyridine HCl [Pyridium] 100 mg PO TID PRN #6 tab 08/19/21 Ibuprofen [Motrin] 600 mg PO Q8HR PRN #20 tab 02/14/24 Doxylamine Succinate/Vit B6 1 each PO HS #10 tab 07/12/24 [Doxylamine-Pyridoxine 10-10 mg] Nitrofurantoin Monohyd/M-Cryst 100 mg PO Q12HR #14 cap 07/24/24 [Macrobid] HYDROcodone/APAP 7.5-325MG [[place] 1 tab PO Q6HR PRN 3 Days #12 tab 08/13/24 7.5-325] Allergies Allergy/AdvReac Type Severity Reaction Status Date / Time No Known Allergies Allergy Verified 08/13/24 14:51 Review of Systems ROS Statement: Those systems with pertinent positive or pertinent negative responses have been documented in the HPI. ROS Other: All systems not noted in ROS Statement are negative. Past Medical History Past Medical History: No Reported History History of Any Multi-Drug Resistant Organisms: None Reported Past Surgical History: Appendectomy Past Psychological History: Depression Smoking Status: Vaper Past Alcohol Use History: Rare Past Drug Use History: Marijuana - Past Family History Father Family Medical History: Cancer Additional Family Medical History / Comment(s): Father 5 years ago from lung cancer. Mother Family Medical History: Hypertension Additional Family Medical History / Comment(s): Maternal grandma has HTN General Exam Limitations: no limitations General appearance: alert, in no apparent distress Head exam: Present: atraumatic, normocephalic, normal inspection Eye exam: Present: normal appearance, PERRL, EOMI. Absent: scleral icterus, conjunctival injection, periorbital swelling ENT exam: Present: normal exam, mucous membranes moist Neck exam: Present: normal inspection, full ROM. Absent: tenderness, meningismus, lymphadenopathy Respiratory exam: Present: normal lung sounds bilaterally. Absent: respiratory distress, wheezes, rales, rhonchi, stridor Cardiovascular Exam: Present: regular rate, normal rhythm, normal heart sounds. Absent: systolic murmur, diastolic murmur, rubs, gallop, clicks GI/Abdominal exam: Present: soft, tenderness (Minimal lower abdominal tenderness), normal bowel sounds. Absent: distended, guarding, rebound, rigid Back exam: Absent: CVA tenderness (R), CVA tenderness (L) Neurological exam: Present: alert Course Vital Signs 08/13/24 08/13/24 14:48 17:19 Temperature 98.2 F Pulse Rate 64 58 L Respiratory 18 16 Rate Blood Pressure 111/67 123/82 O2 Sat by Pulse 99 98 Oximetry Medical Decision Making - Medical Decision Making Was pt. sent in by a medical professional or institution (, PA, LOCAL SALES ASSOCIATE, urgent care, hospital, or long term...) When possible be specific @ -No Did you speak to anyone other than the patient for history (EMS, parent, family, police, friend...)? What history was obtained from this source @ -No Did you review nursing and triage notes (agree or disagree)? Why? @ -I reviewed and agree with nursing and triage notes Were old charts reviewed (outside hosp., previous admission, EMS record, old EKG, old radiological studies, urgent care reports/EKG's, long term records)? Report findings @ -[Ultrasound from 4 days ago showing demise Differential Diagnosis (chest pain, altered mental status, abdominal pain women, abdominal pain men, vaginal bleeding, weakness, fever, dyspnea, syncope, headache, dizziness, GI bleed, back pain, seizure, CVA, palpatations, mental health, musculoskeletal)? @ -Differential Vaginal Bleeding: Spontaneous , threatened , molar , ectopic , bloody show, incompetent cervix, abruptioplacenta, placenta previa, uterine rupture, dysfunctional uterine bleeding, hemorrhage, uterine fibroids, this is not meant to be an all-inclusive list. EKG interpreted by me (3pts min.). @ -None X-rays interpreted by me (1pt min.). @ -None done CT interpreted by me (1pt min.). @ -None done U/S interpreted by me (1pt. min.). @ -None done What testing was considered but not performed or refused? (CT, X-rays, U/S, labs)? Why? @ -None What meds were considered but not given or refused? Why? @ -None Did you discuss the management of the patient with other professionals (professionals i.e. , PA, LOCAL SALES ASSOCIATE, lab, RT, psych nurse, health care social worker, dry pan charger, teacher, detention officer, pillowcase cutter)? Give summary @ -No Was smoking cessation discussed for >3mins.? @ -No Was critical care preformed (if so, how long)? @ -No Were there social determinants of health that impacted care today? How? (Homelessness, low income, unemployed, alcoholism, drug addiction, transportati on, low edu. Level, literacy, decrease access to med. care, [facility], rehab)? @ -No Was there de-escalation of care discussed even if they declined (Discuss DNR or withdrawal of care, Hospice)? DNR status @ -No What co-morbidities impacted this encounter? (DM, HTN, Smoking, COPD, CAD, Cancer, CVA, ARF, Chemo, Hep., AIDS, mental health diagnosis, sleep apnea, morbid obesity)? @ -None Was patient admitted / discharged? Hospital course, mention meds given and route, prescriptions, significant lab abnormalities, going to OR and other pertinent info. @ -Discharge patient's laboratory studies unremarkable patient has normal vitals patient's pain is improved patient be discharged with analgesics patient is having pain from miscarriage she does not have any significant bleeding at this time she is only gone through 1 pad this was observed for several hours. Patient discharged and strict return parameters deni Undiagnosed new problem with uncertain prognosis? @ -No Drug Therapy requiring intensive monitoring for toxicity (Heparin, Nitro, Insulin, Cardizem)? @ -No Were any procedures done? @ -No Diagnosis/symptom? @ -Miscarriage Acute, or Chronic, or Acute on Chronic? @ -Acute Uncomplicated (without systemic symptoms) or Complicated (systemic symptoms)? @ -Complicated Side effects of treatment? @ -No Exacerbation, Progression, or Severe Exacerbation? @ -No Poses a threat to life or bodily function? How? (Chest pain, [place], [place], pneumonia, PE, COPD, DKA, ARF, appy, cholecystitis, CVA, Diverticulitis, Homicidal, Suicidal, threat to staff... and all critical care pts) @ -No - Lab Data Result diagrams: 08/13/24 15:17 08/13/24 15:17 Lab Results 08/13/24 08/13/24 Range/Units 15:17 15:17 WBC 13.9 H (4.0-11.0) k/uL RBC 4.54 (3.80-5.40) m/uL Hgb 12.9 (11.4-16.0) gm/dL Hct 40.5 (34.0-46.0) % MCV 89.2 (80.0-100.0) fL MCH 28.3 (25.0-35.0) pg MCHC 31.8 (31.0-37.0) g/dL RDW 13.7 (11.5-15.5) % Plt Count 307 (150-450) k/uL MPV 7.7 Neutrophils % 66 % Lymphocytes % 26 % Monocytes % 4 % Eosinophils % 2 % Basophils % 0 % Neutrophils # 9.2 H (1.3-7.7) k/uL Lymphocytes # 3.6 (1.0-4.8) k/uL Monocytes # 0.5 (0-1.0) k/uL Eosinophils # 0.3 (0-0.7) k/uL Basophils # 0.1 (0-0.2) k/uL Sodium 136 L (137-145) mmol/L Potassium 3.7 (3.5-5.1) mmol/L Chloride 102 (98-107) mmol/L Carbon Dioxide 24 (22-30) mmol/L Anion Gap 10 mmol/L BUN 11 (7-17) mg/dL Creatinine 0.55 (0.52-1.04) mg/dL Est GFR (CKD-EPI)AfAm >90 (>60 ml/min/1.73 sqM) Est GFR (CKD-EPI)NonAf >90 (>60 ml/min/1.73 sqM) Glucose 95 (74-99) mg/dL Calcium 9.2 (8.4-10.2) mg/dL Total Bilirubin 0.3 (0.2-1.3) mg/dL AST 24 (14-36) U/L ALT 15 (4-34) U/L Alkaline Phosphatase 64 (38-126) U/L Total Protein 7.0 (6.3-8.2) g/dL Albumin 4.0 (3.5-5.0) g/dL Disposition Clinical Impression: Miscarriage Disposition: HOME SELF-CARE Condition: Stable Instructions (If sedation given, give patient instructions): Miscarriage (ED) Additional Instructions: Please return to the Emergency Department if symptoms worsen or any other concerns. Prescriptions: HYDROcodone/APAP 7.5-325MG [[place] 7.5-325] 1 tab PO Q6HR PRN 3 Days #12 tab PRN Reason: pain Is patient prescribed a controlled substance at d/c from ED?: Yes When asked, does pt state using other controlled substances?: No If prescribed controlled substance>3 days was MAPS reviewed?: Prescribed <3 Days If opioid is for acute pain is fill amount 7 days or less?: Yes If Rx opioid, was Start Talking consent form obtained?: Yes Referrals: Rowena Davidson MD [Primary Care Provider] - 1-2 days Time of Disposition: 17:13
[2024-08-13] MEDS: KETOROLAC 15 MG/ML 1 ML VIAL IVP STA (16:54)
[2024-08-13 17:20] VITALS: BP 123/82; PULSE 58; RESP 16
== END 2024-08-13 17:21 | disposition home or self-care (01) ==
LOC: EC 14:46
DX: O02.1 Missed abortion (principal); O99.330 Smoking (tobacco) complicating pregnancy, unspecified trimester; F17.290 Nicotine dependence, other tobacco product, uncomplicated
CPT/HCPCS: 36415; 80053; 85025; 99284; 96374; 96375; 96376; J2405; J1885; J1171